=== PATIENT | male | born 2000 | race Two or more races ===

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

== ENCOUNTER → 2020-01-04 | Emergency (ER) | payer SELFPAY ==
[~2020-01-04] VITALS: Ht 172.7 cm; Wt 94.8 kg
[~2020-01-04] MED LIST changes: -FLEET MINERAL OIL ENEMA 133 ML PR ONE; +IBUPROFEN 800 MG TAB PO ONE
[2020-01-04 17:03] VITALS: BP 134/85
[2020-01-04 17:35] LABS: Urine Bacteria NONE SEEN /hpf (None Seen); Urine Blood Negative /uL (Negative); Urine Mucus FEW (None Seen); Urine Specific Gravity 1.018 (1.001-1.035); Urine WBC <1 /hpf (0 - 3)
[2020-01-04 17:41] LABS: Albumin 4.7 g/dL (3.4-5.0); BUN/Creatinine Ratio 6.9; Calcium 9.4 mg/dL (8.5-10.1); Potassium 3.9 mmol/L (3.5-5.1)
[2020-01-04 17:44] LABS: Bilirubin, Total 1.4 mg/dL (0.2-1.0); Total Protein 8.7 g/dL (6.4-8.2)
[2020-01-04 17:46] LABS: Basophils # (auto) 0.1 10 ^3/uL (0-0.2); Eosinophils # (auto) 0 10 ^3/uL (0-0.8); Lymphocytes # (auto) 2.3 10 ^3/uL (0.4-5.4); Monocytes # (auto) 0.4 10 ^3/uL (0-1.3); Red Blood Cells 6.24 10^6/uL (4.5-5.90)
[2020-01-04 17:48] LABS: Basophils % (auto) 0.8 % (0.0-2.0); Eosinophils % (auto) 0.2 % (0.0-7.0); Hemoglobin 18.3 g/dL (13.5-17.5); Mean Corpuscular Hemoglobin 29.3 pg (28.0-32.0); Mean Corpuscular Hgb Conc. 34.4 g/dL (32.0-36.0); Monocytes % (auto) 6.3 % (0.0-12.0); Neutrophils # (auto) 4.2 10 ^3/uL (1.6-8.6); Neutrophils % (auto) 59.7 % (37.0-80.0); Nucleated Red Blood Cells % 0.1 %; Platelet Count (auto) 294 10^3/uL (140-450); Red Cell Distribution Width 13.6 % (11.8-14.3)
[2020-01-04 17:59] LABS: Amylase 54 U/L (25-115); Lipase 102 U/L (73-393)
[2020-01-04 19:00] LABS: Alcohol, Urine < 3.0 mg/dL (0-10); Amphetamine Screen, Urine NEGATIVE (NEGATIVE); Barbiturate Scree,Urine NEGATIVE (NEGATIVE); Benzodiazephine Screen, Urine NEGATIVE (NEGATIVE); Cannabinoid Screen, Urine NEGATIVE (NEGATIVE); Cocaine Screen, Urine NEGATIVE (NEGATIVE); Opiate Scree,Urine NEGATIVE (NEGATIVE); Phencyclidine Screen, Urine NEGATIVE (NEGATIVE)
== END | disposition home or self-care (01) ==
LOC: ER 16:52
DX: R10.9 Unspecified abdominal pain (principal)
CPT/HCPCS: 36415; 74176; 76705; 80053; 80307; 81001; 82150; 83690; 85025

== ENCOUNTER 2020-12-08 18:06 | Emergency (ER) | payer MEDICAID ==
[~2020-12-08] VITALS: Ht 175.3 cm; Wt 95.3 kg
[2020-12-08 18:12] VITALS: BP 119/79
== END 2020-12-09 00:09 | disposition left against medical advice (07) ==
LOC: ER 18:07
DX: L02.416 Cutaneous abscess of left lower limb (principal); Z53.21 Procedure and treatment not carried out due to patient leaving prior to being seen by health care provider

== ENCOUNTER 2024-11-15 19:17 | Inpatient (IN) | payer MEDICAID ==
[~2024-11-15] VITALS: Ht 172.7 cm; Wt 96.5 kg
--- NOTE | 2024-11-15 19:29 | ED.PDOC ---
History of Present Illness HPI Comments This is a 23-year-old male who comes in with chief complaint of shortness a breath over the last couple of days. The patient states that yesterday he developed some mild chest pain and in the shortness for breath worsened. The patient just states that he can not catch his breath. He denies any nausea, vomiting or diarrhea. The patient denies any fever or chills. Time Seen by MD: 19:19 Primary Care Provider: UNKNOWN Reviewed Notes: Nurses Notes, Medications, Allergies (No allergies to medicati ons) Allergies: Coded Allergies: NO KNOWN ALLERGIES (Unverified , 10/02/16) Information Source: Patient Mode of Arrival: Ambulatory Severity: Moderate Timing: Days Duration: Since onset Prehospital treatment: None Associated signs and symptoms The patient denies any headache, vomiting or diarrhea Past Medical History PAST MEDICAL HISTORY: Denies Surgical History: Denies all surgeries Family History Family History: Reviewed,noncontributory to illness Social History Smoker: Non-Smoker Alcohol: Occasionally Drugs: Denies Drug Use Lives In: Home Constitutional: denies: chills, diaphoresis, fatigue, fever, malaise, sweats, weakness, others EENTM: denies: blurred vision, double vision, ear bleeding, ear discharge, ear drainage, ear pain, ear ringing, eye pain, eye redness, hearing loss, mouth pain, mouth swelling, nasal discharge, nose bleeding, nose congestion, nose pain, photophobia, tearing, throat pain, throat swelling, voice changes, others Respiratory: reports: shortness of breath; denies: cough, hemoptysis, orthopnea, SOB at rest, SOB with excertion, stridor, wheezing, others Cardiovascular: reports: chest pain; denies: dizzy spells, diaphoresis, Dyspnea on exertion, edema, irregular heart beat, left arm pain, lightheadedness, palpitations, PND, syncope, others Gastrointestinal: denies: abdomen distended, abdominal pain, blood streaked bowels, constipated, diarrhea, dysphagia, difficulty swallowing, hematemesis, melena, nausea, poor appetite, poor fluid intake, rectal bleeding, rectal pain, vomiting, others Genitourinary: denies: burning, dysuria, flank pain, frequency, hematuria, incontinence, penile discharge, penile sore, pain, testicle pain, testicle swelling, urgency, others Neurological: denies: dizziness, fainting, headache, left sided numbness, left sided weakness, numbness, paresthesia, pre-existing deficit, right sided nu mbness, right sided weakness, seizure, speech problems, tingling, tremors, weakness, others Musculoskeletal: denies: back pain, gout, joint pain, joint swelling, muscle pain, muscle stiffness, neck pain, others Integumetry: denies: bruises, change in color, change in hair/nails, dryness, laceration, lesions, lumps, rash, wounds, others Allergic/Immunocompromised: denies: Difficulty Healing, Frequent Infections, Hives, Itching, others Hematologic/Lymphatic: denies: anemia, blood clots, easy bleeding, easy bruising, swollen glands, others Endocrine: denies: excessive hunger, excessive sweating, excessive thirst, excessive urination, flushing, intolerance to cold, intolerance to heat, unexplained weight gain, unexplained weight loss, others Psychiatric: denies: anxiety, bipolar disorder, depression, hopeless, panic disorder, schizophrenia, sleepless, suicidal, others Physical Exam General Appearance: Moderate Distress HEENT: Pale Conjuntivae (L), Pale Conjuntivae (R), Pharynx Normal, TMs Normal Neck: Full Range of Motion, Non-Tender, Normal, Normal Inspection Respiratory: Chest Non-Tender, Lungs Clear, No Accessory Muscle Use, No Respiratory Distress, Normal Breath Sounds Cardiovascular: No Edema, No JVD, No Murmur, No Gallop, Normal Peripheral Pulses, Regular Rate/Rhythm Breast Exam: Deferred Gastrointestinal: No Organomegaly, Non Tender, No Pulsatile Mass, Normal Bowel Sounds, Soft Genitalia: Deferred Pelvic: Deferred Rectal: Deferred Extremities: No calf tenderness, Normal capillary refill, Normal inspection, Normal range of motion, Non-tender, No pedal edema Musculoskeletal : Apperance: Normal Neurologic: Alert, senior clinical data analyst II-XII nml as Tested, No Motor Deficits, Normal Affect, Normal Mood, No Sensory Deficits Cerebellar Function: Normal Reflexes: Normal Skin: Dry, Pallor, Warm Lymphatic: No Adenopathy Was a procedure done? Was a procedure done?: No EKG EKG : Pulse Rate (adult): 92 [place]: Normal Cardiac Rhythm: NSR ST: Nonsp Differential Dx Considerations may include: Syncope, generalized weakness, ACS, MT, PE X-Ray, Labs, Meds, VS Vital Signs Date Time Temp Pulse Resp B/P (MAP) Pulse Ox O2 Delivery O2 Flow Rate FiO2 11/15/24 21:18 92 11/15/24 19:58 98.7 73 20 130/60 (83) 99 98.7 11/15/24 19:46 92 Lab Test 11/15/24 20:45 11/15/24 19:42 Range/Units Troponin I High Sensitivity < 3 L < 3 L </=54 ng/L White Blood Count 9.6 4.4-10.8 10^3/uL Red Blood Count 5.69 4.5-5.90 10^6/uL Hemoglobin 16.5 13.5-17.5 g/dL Hematocrit 47.3 41.0-53.0 % Mean Corpuscular Volume 83.2 80.0-100.0 fL Mean Corpuscular Hemoglobin 29.0 28.0-32.0 pg Mean Corpuscular Hemoglobin Concent 34.9 32.0-36.0 g/dL Red Cell Distribution Width 13.0 11.8-14.3 % Platelet Count 294 140-450 10^3/uL Mean Platelet Volume 8.0 6.9-10.8 fL Neutrophils (%) (Auto) 48.1 37.0-80.0 % Lymphocytes (%) (Auto) 43.2 10.0-50.0 % Monocytes (%) (Auto) 7.4 0.0-12.0 % Eosinophils (%) (Auto) 0.6 0.0-7.0 % Basophils (%) (Auto) 0.7 0.0-2.0 % Neutrophils # (Auto) 4.6 1.6-8.6 10 ^3/uL Lymphocytes # (Auto) 4.1 0.4-5.4 10 ^3/uL Monocytes # (Auto) 0.7 0-1.3 10 ^3/uL Eosinophils # (Auto) 0.1 0-0.8 10 ^3/uL Basophils # (Auto) 0.1 0-0.2 10 ^3/uL Nucleated Red Blood Cells 0.1 % D-Dimer, Quantitative 0.25 0.0-0.49 mg/L FEU Sodium Level 141 136-145 mmol/L Potassium Level 3.3 L 3.5-5.1 mmol/L Chloride Level 105 98-107 mmol/L Carbon Dioxide Level 26 20-31 mmol/L Anion Gap 10 5-15 Blood Urea Nitrogen 11 9-23 mg/dL Creatinine 1.07 0.700-1.30 mg/dL Glomerular Filtration Rate Calc 100 >90 mL/min BUN/Creatinine Ratio 10.3 10.0-20.0 Serum Glucose 126 H 74-106 mg/dL Calcium Level 9.6 8.7-10.4 mg/dL Current Medications Medications (Trade) Dose Ordered Sig/Brandon Route Start Time Stop Time Status Last Admin Sodium Chloride 1,000 ml @ 1,000 mls/hr Q1H ONCE IV 11/15/24 20:00 11/15/24 20:59 DC 11/15/24 20:52 IV Hep-Lock was established The CBC is within normal limits The chemistry panel shows hypokalemia at 3.3 The patient was given 1 L bolus of normal saline The troponin levels are negative The patient is being admitted to the hospitalist The patient had an episode of syncope outside of the emergency department's treatment area The patient became very pale and we are concerned that the patient's blood pressure went down significantly At this time we feel it necessary to admit the patient to the hospitalist We have discussed the findings with the patient and they are in agreement with the management We will continue to evaluate the patient as well as monitor the patient for any other episodes of syncope Images Reviewed?: Images reviewed and evaluated by me Time of 1ST Reevaluation: 21:40 Reevaluation 1ST: Unchanged Patient Education/Counseling: Diagnosis, Treatment, Prognosis Family Education/Counseling: No Family Present SEPSIS Sepsis Screen Physician Orders Chest Two Views Routine (11/15/24 19:28) Drug Screen (11/15/24 19:28) Heplock Iv (11/15/24 ) Electrocardigram (11/15/24 19:55) Vital Signs Date Time Temp Pulse Resp B/P (MAP) Pulse Ox O2 Delivery O2 Flow Rate FiO2 11/15/24 21:18 92 11/15/24 19:58 98.7 73 20 130/60 (83) 99 98.7 11/15/24 19:46 92 Laboratory Tests Test 11/15/24 19:42 White Blood Count 9.6 10^3/uL (4.4-10.8) Medications Medications Dose Ordered Sig/Brandon Route Start Time Stop Time Status Last Admin Dose Admin Sodium Chloride 1,000 ml @ 1,000 mls/hr Q1H ONCE IV 11/15/24 20:00 11/15/24 20:59 DC 11/15/24 20:52 Departure 1 Departure Time of Disposition: 21:41 Impression: Primary Impression: Autonomic dysfunction Disposition: ADMITTED INPATIENT Admit to: Tele Condition: Fair Critical Care Note Critical Care Time?: No Stability Stability form required: Yes Unstable for transfer: Telemetry monitoring (Telemetry monitoring required), ED Physician Assesment (Clinical assesment) Heart Score Heart Score: Heart Score Response (Comments) Value History N/A 0 EKG N/A 0 Age N/A 0 Risk Factors N/A 0 Troponin N/A 0 Total 0 TERRANCE STEARNS MD Nov 15, 2024 19:28
[2024-11-15 19:57] LABS: Basophils # (auto) 0.1 10 ^3/uL (0-0.2); Basophils % (auto) 0.7 % (0.0-2.0); Eosinophils # (auto) 0.1 10 ^3/uL (0-0.8); Eosinophils % (auto) 0.6 % (0.0-7.0); Hematocrit 47.3 % (41.0-53.0); Hemoglobin 16.5 g/dL (13.5-17.5); Lymphocytes # (auto) 4.1 10 ^3/uL (0.4-5.4); Lymphocytes % (auto) 43.2 % (10.0-50.0); Mean Corpuscular Hgb Conc. 34.9 g/dL (32.0-36.0); Mean Corpuscular Volume 83.2 fL (80.0-100.0); Monocytes # (auto) 0.7 10 ^3/uL (0-1.3); Monocytes % (auto) 7.4 % (0.0-12.0); Neutrophils # (auto) 4.6 10 ^3/uL (1.6-8.6); Neutrophils % (auto) 48.1 % (37.0-80.0); Nucleated Red Blood Cells % 0.1 %; Platelet Count (auto) 294 10^3/uL (140-450); Red Blood Cells 5.69 10^6/uL (4.5-5.90); White Blood Cell 9.6 10^3/uL (4.4-10.8)
[2024-11-15 20:07] LABS: Chloride 105 mmol/L (98-107); Sodium 141 mmol/L (136-145)
[2024-11-15 20:08] LABS: Anion Gap 10 (5-15); Calcium 9.6 mg/dL (8.7-10.4); Carbon Dioxide 26 mmol/L (20-31)
[2024-11-15 20:13] LABS: BUN/Creatinine Ratio 10.3 (10.0-20.0); Blood Urea Nitrogen 11 mg/dL (9-23)
[2024-11-15 20:16] LABS: Glucose 126 mg/dL (74-106); Potassium 3.3 mmol/L (3.5-5.1)
[2024-11-15] MEDS: SODIUM CHLORIDE 0.9% 1,000 ML IV ONE (20:52)
[2024-11-15] MEDS ORDERED: ONDANSETRON HCL 4 MG/2 ML VIAL IV PRN (23:00)
[2024-11-15] MEDS ORDERED: DOCUSATE SOD 100 MG CAP PO PRN (23:00)
[2024-11-15] MEDS ORDERED: NITROGLYCERIN 0.4 MG SL TAB SL PRN (23:00)
[2024-11-15] MEDS ORDERED: ACETAMINOPHEN 325 MG TAB PO PRN (23:00)
[2024-11-15] MEDS ORDERED: MORPHINE SULFATE INJ 2 MG/ml SYRG IV PRN ×2 (23:00)
--- NOTE | 2024-11-15 23:17 | DVH ---
CHEST RADIOGRAPH Indication: sob Technique: Frontal and lateral view of the chest was obtained Comparison: None FINDINGS: Lines and Tubes: None Lungs: Clear Pleura: No effusion. No pneumothorax. Cardiomediastinal contours: Unremarkable Bones: Unremarkable IMPRESSION: 1. No evidence of acute disease.
[2024-11-15 23:22] LABS: Albumin 4.7 g/dL (3.2-4.8); Bilirubin, Direct 0.2 mg/dL (<0.3); CRP High Sensitivity 0.28 mg/dL (<1.0); Total Protein 7.2 g/dL (5.7-8.2)
[2024-11-15] MEDS: LORATADINE 10 MG TAB PO ONE (23:22)
[2024-11-15] MEDS: POTASSIUM EFFERVESENT TAB 25 MEQ PO ONE (23:22)
[2024-11-15] MEDS: PANTOPRAZOLE 40 MG/10 ML VIAL INJ IV ONE (23:22)
[2024-11-15 23:30] VITALS: BP 130/60; PULSE 92; RESP 20; TEMP 98.7; O2SAT 99
[2024-11-15 23:38] LABS: Erythrocyte Sedimentation Rate 2 mm/hr (0-20)
--- NOTE | 2024-11-15 23:58 | DVHHPRES ---
History of Present Illness Resident Creating Document: NICHOLAS ALEGRIA RESIDENT History of Present Illness Mr. Ramos, a 23-year-old male presenting with a past medical history of allergy, atopy and obesity chief complaint of shortness of breath that has persisted over the past few days, worsening since yesterday when he also deve loped mild chest pain. He describes an inability to catch his breath but denies associated symptoms such as nausea, vomiting, diarrhea, headache, fever, or chills. He has no significant past medical or surgical history, reports no known allergies, and arrived ambulatory with moderate symptom severity. He does not smoke, uses alcohol occasionally, denies drug use, and lives at home. Family history is reviewed and noncontributory. Past Medical History obesity, atopy Past Surgical History: None Family History: None, Other (noncontributory ) Smoke: No ALCOHOL: occassional Drugs: None Lives: with Family Domestic Violence: Neg Review of Systems Constitutional: No: Fever, Chills, Sweats, Weakness, Malaise, Other Eyes: No: Pain, Vision change, Conjunctivae inflammation, Eyelid inflammation, Other, Redness ENT: No: Ear pain, Ear discharge, Nose pain, Nose discharge, Nose congestion, Mouth pain, Mouth swelling, Throat pain, Throat swelling, Other Respiratory: Cough, Shortness of breath, Pleuritic Pain; No: Dry, SOB with excertion, Wheezing, Hemoptysis, Sputum, Wheezing, Other Cardiovascular: No: Chest Pain, Palpitations, Orthopnea, Paroxysmal Noc. Dyspnea, Edema, Lt Headedness, Other Gastrointestinal: No: Nausea, Vomiting, Abdominal Pain, Diarrhea, Constipation, Melena, Hematochezia, Other Genitourinary: No Dysuria, No Frequency, No Incontinence, No Hematuria, No Retention, No Other Musculoskeletal: No: other, neck pain, shoulder pain, arm pain, back pain, hand pain, leg pain, foot pain Skin: No: Rash, Lesions, Jaundice, Bruising, Other Neurological: No: Weakness, Numbness, Incoordination, Change in speech, Confusion, Seizures, Other Allergies: Coded Allergies: NO KNOWN ALLERGIES (Unverified , 10/02/16) Medications Current Medications Medications Dose Ordered Sig/Brandon Route Start Time Stop Time Status Last Admin Dose Admin Ondansetron HCl 4 mg Q4HP PRN IV 11/15/24 23:00 Docusate Sodium 100 mg BIDPRN PRN PO 11/15/24 23:00 Enoxaparin Sodium 40 mg DAILY SC 11/16/24 10:00 Acetaminophen 650 mg Q6HP PRN PO 11/15/24 23:00 Morphine Sulfate 2 mg Q4HPRN PRN IV 11/15/24 23:00 Nitroglycerin 0.4 mg Q5MINP PRN SL 11/15/24 23:00 Morphine Sulfate 2 mg Q30M PRN IV 11/15/24 23:00 Albuterol 2.5 mg Q6HWA NEB 11/16/24 06:00 Loratadine 10 mg DAILY PO 11/16/24 10:00 Pantoprazole Sodium 40 mg DAILY IV 11/16/24 10:00 Exam Vital Signs Vital Signs Date Time Temp Pulse Resp B/P (MAP) Pulse Ox O2 Delivery O2 Flow Rate FiO2 11/15/24 23:30 98.7 92 20 130/60 99 98.7 11/15/24 23:26 Room Air General Appearance: Alert, Oriented X3, Cooperative, No acute distress HEENT: Atraumatic, PERRLA, EOMI, Other (red nasal mucosa) Respiratory: Clear to auscultation, Normal air movement, Other (RA mild tenderness over left perichondral area) Cardiovascular: Regular rate, Normal S1, Normal S2, No murmurs Abdominal: Normal bowel sounds, Soft, No tenderness, No hepatospenomegaly, No masses Extremities: No clubbing, No cyanosis, No edema, Normal pulses, No tender ness/swelling Skin: No rashes, No breakdown, No significant lesion Neuro: Normal gait, Normal speech, Strength at 5/5 X4 ext, Normal tone, Sensation intact, Cranial nerves 3-12 NL, Reflexes 2+ Psych/Mental Status: Mental status NL, Mood NL Labs/Xrays Labs Test 11/15/24 20:45 11/15/24 19:42 Range/Units Total Bilirubin 1.0 0.2-1.0 mg/dL Direct Bilirubin 0.2 <0.3 mg/dL Aspartate Amino Transferase (AST) 23 <34 U/L Alanine Aminotransferase (ALT) 24 7-40 U/L Alkaline Phosphatase 62 46-116 U/L Troponin I High Sensitivity < 3 L </=54 ng/L C-Reactive Protein High Sensitivity 0.28 <1.0 mg/dL Total Protein 7.2 5.7-8.2 g/dL Albumin 4.7 3.2-4.8 g/dL White Blood Count 9.6 4.4-10.8 10^3/uL Red Blood Count 5.69 4.5-5.90 10^6/uL Hemoglobin 16.5 13.5-17.5 g/dL Hematocrit 47.3 41.0-53.0 % Mean Corpuscular Volume 83.2 80.0-100.0 fL Mean Corpuscular Hemoglobin 29.0 28.0-32.0 pg Mean Corpuscular Hemoglobin Concent 34.9 32.0-36.0 g/dL Red Cell Distribution Width 13.0 11.8-14.3 % Platelet Count 294 140-450 10^3/uL Mean Platelet Volume 8.0 6.9-10.8 fL Neutrophils (%) (Auto) 48.1 37.0-80.0 % Lymphocytes (%) (Auto) 43.2 10.0-50.0 % Monocytes (%) (Auto) 7.4 0.0-12.0 % Eosinophils (%) (Auto) 0.6 0.0-7.0 % Basophils (%) (Auto) 0.7 0.0-2.0 % Neutrophils # (Auto) 4.6 1.6-8.6 10 ^3/uL Lymphocytes # (Auto) 4.1 0.4-5.4 10 ^3/uL Monocytes # (Auto) 0.7 0-1.3 10 ^3/uL Eosinophils # (Auto) 0.1 0-0.8 10 ^3/uL Basophils # (Auto) 0.1 0-0.2 10 ^3/uL Nucleated Red Blood Cells 0.1 % Erythrocyte Sedimentation Rate 2 0-20 mm/hr D-Dimer, Quantitative 0.25 0.0-0.49 mg/L FEU Sodium Level 141 136-145 mmol/L Potassium Level 3.3 L 3.5-5.1 mmol/L Chloride Level 105 98-107 mmol/L Carbon Dioxide Level 26 20-31 mmol/L Anion Gap 10 5-15 Blood Urea Nitrogen 11 9-23 mg/dL Creatinine 1.07 0.700-1.30 mg/dL Glomerular Filtration Rate Calc 100 >90 mL/min BUN/Creatinine Ratio 10.3 10.0-20.0 Serum Glucose 126 H 74-106 mg/dL Hemoglobin A1c 5.2 <5.7 % A1C Calcium Level 9.6 8.7-10.4 mg/dL Thyroid Stimulating Hormone (TSH) 2.35 0.55-4.78 uIU/mL Assessment/Plan Assessment/Plan #Chest pain rule out ACS: Check troponin trend, EKG, keep on telemetry, ESR, CRP, differential arm blood pressure, UA, UDS, keep on IV pantoprazole #possible community-acquired pneumonia Gram-positive/Gram-negative: shortness of breath: Associated with dry cough, could be due to Viral etiologies as well. #Possible asthma: With hi of atopy and seasonal allergy, we will check for reversible arranging albuterol as needed. #Grade 1 obesity: weight loss HbA1C and Lipid panel to check. #Possible costochondritis: pain management. #seasonal allergy : Cetirizine hydrochloride 10 daily at bedtime. #allergic rhinitis fluticasone propionate 50 mcg as needed, #occasional alcohol use, advised to cut down alcohol with lifestyle modification and weight loss. PCP: Dr. Echevarria Specialist Relevant To Admission: None Case discussed with Dr. Avila. Code Status: Full Code, goals of care discussion needed total 31 minutes bedside with plan of care discussion. The patient agreed to the hospital admiss ion and plan of care. Plan discussed with: Patient My Orders Orders - NICHOLAS ALEGRIA RESIDENT Procedure Category Date Status Time Admit ADMIT 11/15/24 Transmitted 22:46 Allergies THUAN 11/15/24 In Process 22:46 Code Status CODE 11/15/24 Transmitted 22:46 Ondansetron Hcl PHA 11/15/24 In Process (Zofran) 23:00 Docusate Sodium PHA 11/15/24 In Process Capsule (Colace 23:00 Enoxaparin Sodium PHA 11/16/24 In Process (Lovenox) 10:00 Complete Blood Count LAB 11/16/24 Verified 04:00 Comprehensive LAB 11/16/24 Verified Metabolic Panel 04:00 Cardiac DIET 11/16/24 Transmitted Diet-2gna,Lofat,Lochol Breakfast Echo 2d Mode Cardiac US 11/15/24 Logged DOP 22:46 Condition: Serious THUAN 6/18/25 In Process 22:46 Acetaminophen Tablet PHA 11/15/24 In Process (Tylenol Tablet) 23:00 Morphine Sulfate PHA 11/15/24 In Process Injection 23:00 Nitroglycerin PHA 11/15/24 In Process Sublingual (Ntrostat 23:00 Morphine Sulfate PHA 11/15/24 In Process Injection 23:00 Oxygen By Nasal RT 11/15/24 Transmitted Cannula 22:46 Stat Ekg For Chest THUAN 11/15/24 In Process Pain 22:46 Notify Of Changes THUAN 11/15/24 In Process From Base 22:46 Leather Patcher For THUAN 11/15/24 In Process 24 Hours 22:46 Emergency Dysrhythmia THUAN 11/15/24 In Process Protocol 22:46 Rhythm Strips Once THUAN 11/15/24 In Process Every Shift 22:46 Covid19 Antigen Gabriella LAB 11/15/24 Logged Rapid Influenza A&B LAB 11/15/24 Logged 22:50 Albuterol Medneb PHA 11/16/24 In Process (Ventolin Medneb) 06:00 Loratadine Tablet PHA 11/16/24 In Process (Claritin Tablet) 10:00 Pantoprazole PHA 11/16/24 In Process (Protonix) 10:00 Urinalysis LAB 11/15/24 Logged 23:11 Date of Service: Nov 15, 2024 Billing Provider: RIO AVILA MD Common Visit Codes: 76928-CQPRQGH INP/OBS CARE (HIGH) Secondary Visit Codes: 56304-ZGAZRACA CARE PLAN 30 MINUTES NICHOLAS ALEGRIA RESIDENT Nov 15, 2024 23:58
[2024-11-16 06:48] VITALS: PULSE 63; RESP 14; O2SAT 99
[2024-11-16] MEDS: ALBUTEROL SULF 2.5 MG/0.5ML(0.5%) NEB SOLN NEB SCH (06:48)
[2024-11-16 06:52] LABS: Basophils # (auto) 0.1 10 ^3/uL (0-0.2); Basophils % (auto) 0.7 % (0.0-2.0); Eosinophils # (auto) 0.1 10 ^3/uL (0-0.8); Eosinophils % (auto) 1.1 % (0.0-7.0); Hematocrit 44.8 % (41.0-53.0); Hemoglobin 15.7 g/dL (13.5-17.5); Lymphocytes # (auto) 3.2 10 ^3/uL (0.4-5.4); Lymphocytes % (auto) 40.7 % (10.0-50.0); Mean Corpuscular Hemoglobin 29.1 pg (28.0-32.0); Mean Corpuscular Volume 83.2 fL (80.0-100.0); Monocytes # (auto) 0.6 10 ^3/uL (0-1.3); Neutrophils % (auto) 49.5 % (37.0-80.0); Nucleated Red Blood Cells % 0.1 %; Platelet Count (auto) 281 10^3/uL (140-450); Red Blood Cells 5.38 10^6/uL (4.5-5.90)
[2024-11-16 06:53] LABS: Alanine Aminotransferase 22 U/L (7-40); Alkaline Phosphatase 62 U/L (46-116); Anion Gap 7 (5-15); Aspartate Aminotransferase 19 U/L (<34); BUN/Creatinine Ratio 10.8 (10.0-20.0); Blood Urea Nitrogen 10 mg/dL (9-23); Calcium 9.8 mg/dL (8.7-10.4); Carbon Dioxide 29 mmol/L (20-31); Glucose 83 mg/dL (74-106); Sodium 143 mmol/L (136-145); Total Protein 7.4 g/dL (5.7-8.2)
[2024-11-16 06:54] LABS: Albumin 4.8 g/dL (3.2-4.8); Bilirubin, Total 1.2 mg/dL (0.2-1.0); Chloride 107 mmol/L (98-107)
[2024-11-16 06:56] VITALS: PULSE 66; RESP 16; O2SAT 100
--- NOTE | 2024-11-16 07:17 | ECG ---
[facility] Test Date: 2024-11-15 Test Time: 19:46:42 Pat Name: SAIDA STACY Department: ED Room: [address] [place] [address] Gender: M Auto Inspector: JOHN : 2000 Requested By: TERRANCE STEARNS Order Number: [id number] Reading MD: Alcon Aguirre Measurements Intervals Delta Rate: 92 P: 42 IL: 150 QRS: 71 QRSD: 90 T: 13 QT: 334 QTc: 414 Interpretive Statements Sinus rhythm Electronically Signed On 11-17-2024 21:17:45 PDT by Alcon Aguirre Please click the below link to view image of tracing.
[2024-11-16] MEDS: methylPREDNISolone SOD SUCC 40 MG/ML VL IV ONE (08:22)
[2024-11-16 08:24] VITALS: PULSE 66; RESP 16; O2SAT 99
[2024-11-16] MEDS ORDERED: PANTOPRAZOLE 40 MG/10 ML VIAL INJ IV SCH (10:00)
[2024-11-16] MEDS ORDERED: ENOXAPARIN SOD 40 MG/0.4 ML SYRINGE SC SCH (10:00)
[2024-11-16] MEDS ORDERED: LORATADINE 10 MG TAB PO SCH (10:00)
[2024-11-16 11:23] VITALS: PULSE 96; RESP 16; O2SAT 97; O2SAT 99
[2024-11-16 11:29] VITALS: PULSE 86; RESP 16; O2SAT 100
[2024-11-16 11:40] VITALS: BP 124/76; PULSE 83; RESP 16; TEMP 98; O2SAT 98
--- NOTE | 2024-11-16 16:52 | DVHDSRES ---
Discharge Summary Date of Admission Resident Creating Document: NICHOLAS ALEGRIA RESIDENT Nov 15, 2024 at 22:46 Date of Discharge: Nov 16, 2024 Admitting Diagnosis Shortness of breaths Labs/Diagnostic Data: Laboratory Results Test 11/16/24 06:15 11/15/24 20:45 11/15/24 19:42 White Blood Count 8.0 10^3/uL (4.4-10.8) Red Blood Count 5.38 10^6/uL (4.5-5.90) Hemoglobin 15.7 g/dL (13.5-17.5) Hematocrit 44.8 % (41.0-53.0) Mean Corpuscular Volume 83.2 fL (80.0-100.0) Mean Corpuscular Hemoglobin 29.1 pg (28.0-32.0) Mean Corpuscular Hemoglobin Concent 35.0 g/dL (32.0-36.0) Red Cell Distribution Width 13.0 % (11.8-14.3) Platelet Count 281 10^3/uL (140-450) Mean Platelet Volume 8.1 fL (6.9-10.8) Neutrophils (%) (Auto) 49.5 % (37.0-80.0) Lymphocytes (%) (Auto) 40.7 % (10.0-50.0) Monocytes (%) (Auto) 8.0 % (0.0-12.0) Eosinophils (%) (Auto) 1.1 % (0.0-7.0) Basophils (%) (Auto) 0.7 % (0.0-2.0) Neutrophils # (Auto) 4.0 10 ^3/uL (1.6-8.6) Lymphocytes # (Auto) 3.2 10 ^3/uL (0.4-5.4) Monocytes # (Auto) 0.6 10 ^3/uL (0-1.3) Eosinophils # (Auto) 0.1 10 ^3/uL (0-0.8) Basophils # (Auto) 0.1 10 ^3/uL (0-0.2) Nucleated Red Blood Cells 0.1 % Sodium Level 143 mmol/L (136-145) Potassium Level 4.0 mmol/L (3.5-5.1) Chloride Level 107 mmol/L (98-107) Carbon Dioxide Level 29 mmol/L (20-31) Anion Gap 7 (5-15) Blood Urea Nitrogen 10 mg/dL (9-23) Creatinine 0.93 mg/dL (0.700-1.30) Glomerular Filtration Rate Calc 118 mL/min (>90) BUN/Creatinine Ratio 10.8 (10.0-20.0) Serum Glucose 83 mg/dL (74-106) Calcium Level 9.8 mg/dL (8.7-10.4) Total Bilirubin 1.2 mg/dL (0.2-1.0) Aspartate Amino Transferase (AST) 19 U/L (<34) Alanine Aminotransferase (ALT) 22 U/L (7-40) Alkaline Phosphatase 62 U/L (46-116) Total Protein 7.4 g/dL (5.7-8.2) Albumin 4.8 g/dL (3.2-4.8) Direct Bilirubin 0.2 mg/dL (<0.3) Troponin I High Sensitivity < 3 ng/L (</=54) C-Reactive Protein High Sensitivity 0.28 mg/dL (<1.0) Erythrocyte Sedimentation Rate 2 mm/hr (0-20) D-Dimer, Quantitative 0.25 mg/L FEU (0.0-0.49) Hemoglobin A1c 5.2 % A1C (<5.7) Thyroid Stimulating Hormone (TSH) 2.35 uIU/mL (0.55-4.78) Other Laboratory Tests 11/16/24 06:15 Brief Hx & Hospital Course: Mr. Ramos, a 23-year-old male presenting with a past medical history of allergy, atopy and obesity chief complaint of shortness of breath that has persisted over the past few days, worsening since yesterday when he also developed mild chest pain. He describes an inability to catch his breath but denies associated symptoms such as nausea, vomiting, diarrhea, headache, fever, or chills. He has no significant past medical or surgical history, reports no known allergies, and arrived ambulatory with moderate symptom severity. He does not smoke, uses alcohol occasionally, denies drug use, and lives at home. Family history is reviewed and noncontributory. Hospital course: The patient was admitted at the line of acute allergic reaction of unknown reason. The patient was given injection methylprednisolone, Protonix, loratadine and nebulized with albuterol. Patient was also given IV fluid. Chest x-ray shows no significant intra thoracic abnormalities. On 11/17/2023, and the patient was feeling better since admission. Shortness of breaths and anxiety had improved. Discharge plan discussed with the patient the patient discharged home. Discharge plan: Follow up with the PCP within 1 week of the discharge. Condition at Discharge: Good Final Diagnosis/Problems List Panic attack Possible asthma exacerbation Acute allergic reaction, unknown reason Obesity History of anxiety Ruled out autonomic dysfunction Ruled out pneumonia Ruled out ACS Ruled out costochondritis Discharge Disposition: Home Discharge Instruct/Medications Diet: Regular Activity: No Restrictions, As Tolerated Follow Up/Referral: Follow up with the PCP within 1 week of the discharge Discharge Statement: "Patient was advised to return to the ER or call 911 if any headaches, dizziness, shortness of breath, chest pain, abdominal pain, bleeding, fevers, or worsening of medical condition. Patient was counseled about treatment plan, medications, possible side effects, patientverbalized understanding. All questions were answered to the best of my ability. This discharge took greater then 30 minutes in planning, reviewing documentation, counseling the patient, and discussing with other team members." ASSESSMENT ASSESSMENT Assessment Panic attack Date of Service: Nov 16, 2024 Billing Provider: THU SAAVEDRA MD Common Visit Codes: 81853-MJY/OBS DISCH DAY >30min GRAHAM BURCH RESDIENT Nov 16, 2024 16:52 THU SAAVEDRA MD Nov 17, 2024 15:35
== END 2024-11-16 11:44 | disposition home or self-care (01) | DRG 141 ==
LOC: ER 19:17 → OVERFLOW 22:46
PROVIDERS: ADMIT Student in an Organized Health Care Education/Training Program; ATTEND Emergency Medicine
DX: J45.901 Unspecified asthma with (acute) exacerbation (principal); E66.9 Obesity, unspecified; Z68.32 Body mass index [BMI] 32.0-32.9, adult; F41.0 Panic disorder [episodic paroxysmal anxiety]; J30.2 Other seasonal allergic rhinitis
CPT/HCPCS: 36415; 71046; 80048; 80053; 80076; 83036; 84443; 84484; 85025; 85379; 85652; 86141; 93005; 94640; 96374; 96375; G0378; J2470